=== PATIENT | male | born 1985 | race Caucasian/White ===

== ENCOUNTER 2022-11-03 12:04 | Inpatient (IN) | payer SELFPAY ==
[2022-11-03] MEDS ORDERED: Sodium Chloride 0.9% 10 ML Syringe FLUSH PRN (12:16)
[2022-11-03] MEDS ORDERED: Adenosine 6 MG/2 ML SDV IVPUSH ONE (12:17)
[2022-11-03] MEDS ORDERED: Diltiazem 25 MG/5 ML SDV IVPUSH ONE (12:27)
[2022-11-03] MEDS ORDERED: Sodium Chloride 0.9% 1,000 ML IV SCH (12:30)
[2022-11-03] MEDS: Diltiazem 125 MG in Sodium Chloride 0.9% 100 ML IV SCH ×2 (13:06→21:57)
[2022-11-03] MEDS ORDERED: Apixaban 5 MG Tab PO ONE (16:06)
[2022-11-03] MEDS ORDERED: Ondansetron 4 MG/2 ML SDV IV PRN (18:58)
[2022-11-03] MEDS ORDERED: Acetaminophen 325 MG Tab PO PRN (18:58)
[2022-11-03] MEDS ORDERED: Magnesium Sulfate/Water 2 GM in Premix Bag 1 BAG IV ONE (19:00)
[2022-11-03] MEDS ORDERED: Apixaban 5 MG Tab ONE (19:44)
[2022-11-03] MEDS: Metoprolol Tartrate 25 MG Tab PO SCH (19:52)
[2022-11-04] MEDS: Metoprolol Tartrate 25 MG Tab PO SCH (00:17)
[2022-11-04] MEDS ORDERED: Metoprolol Tartrate 100 MG Tab PO SCH (09:00)
[2022-11-04] MEDS ORDERED: Enoxaparin 40 MG/0.4 ML Syringe SUBCUT SCH (09:00)
[2022-11-04] MEDS ORDERED: Metoprolol Tartrate 50 MG Tab PO ONE (12:00)
== END 2022-11-04 12:58 | disposition home or self-care (01) | DRG 309 ==
LOC: JD.ED 12:04 → JD.ICU 18:47
PROVIDERS: ADMIT Internal Medicine; ATTEND Internal Medicine
DX: I48.91 Unspecified atrial fibrillation (principal); Z68.41 Body mass index [BMI] 40.0-44.9, adult; G47.33 Obstructive sleep apnea (adult) (pediatric); F17.210 Nicotine dependence, cigarettes, uncomplicated; E66.01 Morbid (severe) obesity due to excess calories; Z79.01 Long term (current) use of anticoagulants
CPT/HCPCS: 36415; 80048; 83735; 85027; 93005; 96361; 96365; 96366; 96375; 96376; 99285-25; A9270-GY; J0153; J3475; J3490; J7030